=== PATIENT | female | born 1985 | race Two or more races ===

== ENCOUNTER 2024-07-12 13:15 | Day surgery (SDC) | payer MEDICAID, SELFPAY ==
--- NOTE | 2024-07-07 07:00 | EKG_ITS ---
[facility] Test Date: 2024-07-07 Pat Name: CATARINA GUERRERO Department: Room: - Gender: Female Product Introduction Manager: JUDI : 1985 Requested By: Zhang Mccrary Order Number: [id number] Reading MD: Zhang Mccrary Measurements Intervals Rosine Rate: 73 P: 51 IL: 113 QRS: 43 QRSD: 82 T: 37 QT: 423 QTc: 468 Interpretive Statements SINUS RHYTHM WITH SHORT [place] INTERVAL POSSIBLE RIGHT VENTRICULAR CONDUCTION DELAY No previous ECG available for comparison /[id number]/S0/[id number].pdf
[2024-07-07 09:42] VITALS: BMI 25.2
[2024-07-07 10:08] LABS: Collection Type, Urine Clean Catch
[2024-07-07 10:38] LABS: Basophils % (Auto) 0 % (0-2.5); Eosinophils # (Auto) 0.1 Thou/mm3 (0.0-0.5); Eosinophils % (Auto) 1 % (0-10); Hematocrit 38.3 % (36.0-46.0); Hemoglobin 12.8 g/dL (12.0-16.0); Immature Granulocytes % (Auto) 0 % (0-0); Immature Granulocytes Auto 0.01 Thou/mm3 (0.00-0.00); Lymphocytes # (Auto) 1.3 Thou/mm3 (1.0-4.8); Lymphocytes % (Auto) 21 % (10-50); Mean Corpuscular HGB Conc 33.4 g/dl (31.0-37.0); Mean Corpuscular Hemoglobin 29.6 pg (25.0-35.0); Mean Corpuscular Volume 89 fL (80-100); Monocytes # (Auto) 0.3 Thou/mm3 (0.0-0.8); Monocytes % (Auto) 5 % (0-12); Neutrophils # (Auto) 4.6 Thou/mm3 (1.8-7.7); Neutrophils % (Auto) 73 % (37-80); Nucleated Red Blood Cell % 0 /100 WBC (0); Platelet Count 222 Thou/mm3 (140-440); RDW Standard Deviation 41.9 fL (36.4-46.3); Red Blood Count 4.32 Miln/mm3 (4.00-5.20); White Blood Count 6.4 Thou/mm3 (3.6-11.0)
[2024-07-07 10:43] LABS: Bacteria,Urine Rare; Bilirubin,Urine Negative (Negative); Blood,Urine Negative (Negative); Clarity,Urine Clear (Clear/Hazy); Color,Urine Yellow (Lt Yel-Yel); Glucose, Urine Negative (Negative); Ketones,Urine Negative (Negative); Leukocyte Esterase,Urine Negative (Negative); Nitrite,Urine Negative (Negative); PH,Urine 5.5 (5.0-7.0); Protein,Urine Negative (Neg - Trace); RBC,Urine 1 /hpf (0-3); Specific Gravity,Urine 1.025 (1.001-1.035); Squamous Epithelial Cell,Urine 2 /hpf (0-5); Urobilinogen,Urine Negative mg/dL (0.0-1.0); WBC,Urine 1 /hpf (0-5)
[2024-07-07 10:49] LABS: Partial Thromboplastin Time 28.5 Seconds (22.0-36.0); Prothrombin Time 11.3 Seconds (9.0-12.2)
[2024-07-07 11:01] LABS: Alanine Aminotransferase < 7 U/L (10-49); Albumin, Serum 4.7 gm/dL (3.5-5.0); Albumin/Globulin Ratio 1.7 (1.2-2.2); Alkaline Phosphatase 62 U/L (46-116); Anion Gap 5 (7-16); Aspartate Amino Transferase 16 U/L (0-34); BUN/Creatinine Ratio 10 Ratio (12-20); Bilirubin,Total 0.8 mg/dL (0.3-1.2); Blood Urea Nitrogen 8 mg/dL (9-23); Calcium 9.4 mg/dL (8.3-10.6); Calcium (Corrected) 9.4 mg/dL (8.5-10.1); Chloride 106 mMol/L (98-107); Creatinine (Component) 0.8 mg/dL (0.6-1.3); Estimated Creatinine Clearance 86.6 mL/min (>60); Globulin 2.8 gm/dL (2.3-3.5); Glucose 100 mg/dL (74-106); Osmolality,Calculated 275 (275-295); Potassium 3.5 mMol/L (3.4-5.1); Sodium 139 mMol/L (136-145); Total Protein 7.5 gm/dL (5.7-8.2); eGFR > 60 See Note
--- NOTE | 2024-07-10 11:25 | PD.SURHP ---
HPI Date of Admission July 12, 2024 Chief Complaint Chief Complaint: Painful ventral incisional umbilical hernia. HPI This is a 39-year-old female she had laparoscopic tubal ligation through the umbilical incision. Later on she developed hernia in this incision and has been growing steadily over a period of past several years and it has become very irreducible and is giving her significant pain. She is brought to the operating room for exploration and repair of the incisional umbilical hernia with possible implantation of a patch. Risk benefits alternatives were discussed with the patient and informed consent is obtained. Past Medical History Past Medical History NEUROLOGIC: Negative Neurological Disorders or Seizures CARDIAC: Negative Cardiac Disorders or Congestive Heart Failure RESPIRATORY: Negative Respiratory Disorders or Chronic Obstructive Pulmonary Disease (COPD) GASTROINTESTINAL: Negative Gastrointestinal Disorders GENITOURINARY: Negative Genitourinary Disorders or Renal Disease REPRODUCTIVE: Positive Previous Pregnancies (4) MUSCULOSKELETAL: Negative Musculoskeletal Disorders ENT: Negative History of ENT Problems ENDOCRINE: Negative Endocrine Disorders, Diabetes Mellitus Type 1 or Diabetes Mellitus Type 2 HEMATOLOGIC: Negative Blood Disorders OTHER HISTORY: Positive Hospitalization (surgery) and Chicken Pox; Negative Autoimmune Disease, Shingles, Blood Transfusions, Blood Transfusion Reaction, Anesthesia Reactions or Cancer Family History FAMILY HISTORY: Positive Family Cancer and Family Surgery; Negative Family Psychiatric Problems, Family Respiratory Disorders, Family Cardiac Disorders, Family Gastrointestinal Problems, Family Genitourinary Problems, Family Endocrine Disorders, Family Reproductive Disorders, Family Musculoskeletal Disorders or Family Anesthesia Reaction Surgical History SURGICAL: Positive Hysterectomy and Tubal Ligation Social History SMOKING STATUS: Never smoker Travel History EBOLA RISK: No Meds Home Medications and Allergies Home Medications ?Medication ?Instructions ?Recorded ?Confirmed ?Type No Known Home Medications 07/24/23 07/07/24 History Allergies Allergy/AdvReac Type Severity Reaction Status Date / Time No Known Allergies Allergy Verified 07/07/24 09:42 Exam Constitutional Constitutional: no acute distress Routine HEENT Exam Head: Present normocephalic Eye: Present EOMI and PERRL ENT: Present mucous membranes moist Routine Neck Exam Neck: Present supple and trachea midline Routine Chest/Breast/Axilla Exam Chest wall: Absent tenderness or mass Routine Respiratory Exam Respiratory: Present chest non-tender, lungs clear, normal breath sounds and no resp distress; Absent respiratory distress Routine Cardiovascular Exam Cardiovascular: Present RRR Routine Abdominal Exam Abdominal: Present soft, normoactive bowel sounds, hernia (There is an umbilical incisional hernia that is not reducible. There is a scar in the umbilicus.) and surgical scars (Umbilical area.); Absent distended, rebound or guarding Routine Extremities Exam Extremities: Present full ROM Routine Skin Exam Skin: Present intact, dry and warm Routine Neurological Exam Neurological: Present alert, oriented X3 and CN II-XII intact Routine Psychiatric Exam Psychiatric: Present normal affect and normal thought process Results Results: Laboratory Laboratory results: results reviewed Assessment & Plan Problem List (1) Incisional ventral hernia w obstruction: Status: Acute (2) Umbilical hernia: Status: Acute Plan Repair of partially a reducible umbilical and incisional hernia with possible implantation of a patch. Informed consent is obtained. Quality Measures Quality Measures none
[2024-07-12] VITALS (8 sets, daily range): BP systolic 103–119; BP diastolic 56–73; PULSE 76–110; RESP 12–20; TEMP 36.2–36.6; O2SAT 97–100; BMI 25.7
[2024-07-12] MEDS: RINGERS LACTATED 1000 ML 1,000 ML 60 ML IV (13:40)
--- NOTE | 2024-07-12 18:11 | PD.SUROPNT ---
Date of Procedure 07/12/24 Pre Op Diagnosis Ventral incisional hernia Post Op Diagnosis Same. Procedure Repair of ventral incisional hernia incarcerated on July 12, 2024 Findings This patient had laparoscopic procedure done in her pelvis and developed a hernia in the laparoscopic incision around the umbilicus. Upon exploration through the previous scar patient was noted to have an incarcerated hernia and he required extension of the hernia defect in order to reduce the hernia. The hernia measured about 4 cm. Procedure Description The patient is interviewed in the preoperative area and the procedure was discussed in detail with the patient including expectation of outcomes. Explanation of the technique and complications. An informed consent was obtained. Anesthesia consent was obtained by the anesthesiologist. The hernia sites were marked on the surface. Patient is brought back to the operating room. The patient is positioned supine on the operating table and general anesthesia is administered in a satisfactory manner. The chest abdomen and thigh genitalia regions are prepped and draped in usual manner. IV antibiotics were given and a timeout procedure was carried out. The local anesthesia quarter percent Marcaine with out epinephrine is used. The previous incision scar is used to make a transverse incision below the umbilicus. This was deepened through the skin and subcutaneous tissue. Incarcerated hernia sac is identified. Hernia sac is not reducible therefore the defect was cleared and then extended laterally on the left side. The hernia sac is opened and the contents were examined again are viable and is reduced. The hernia sac is removed as specimen. The fascia is cleared for about 2 cm around the defect. The defect is closed with 0 Ethibond [id number] stitches. The operative field is thoroughly irrigated with saline solution and hemostasis is achieved. The sponge needle lap and instrument counts were obtained they are correct x 2. The umbilicus is attached back to the fascia with interrupted 2-0 Vicryl stitches. Subcu tissue was again irrigated and was approximated with 3-0 chromic interrupted sutures and skin by 4-0 Monocryl subcuticular stitches. Steri-Strips were applied. Patient tolerated the procedure very well complications none. Patient is transferred to recovery room in a satisfactory condition. Anesthesia GETA Drains None. Implants None. Pathology / specimen Other (Hernia sac) Estimated Blood Loss 5 Condition Stable Disposition PACU Surgeon Zhang Mccrary MD Surgical Staff Operation Date: 07/12/24 16:00 Case Staff ASSOCIATE QUALITY ENGINEER: [place],Sudarshan B inspector insulation: Jesus Shelton, ADRIENNE tender coordinator [facility] surgical instrument repair specialist
--- NOTE | 2024-07-12 18:21 | SUR.PHASEI ---
pt arrived to PACU via gurney with oral airway present, breathing unlabored, dressing to abdomen clean, dry, and intact, report from Bobby RN, and Alexis GASOLINE DRAGLINE OPERATOR.
[2024-07-12] MEDS: fentaNYL CIT INJ 50 mCg/ML AMP 2ML IV (18:51)
[2024-07-12] MEDS: ACETAMINOPHEN IVPB 1,000 MG/100 ML VIAL 250 MG IV (18:52)
--- NOTE | 2024-07-12 19:38 | SUR.PHASEII ---
pt awake, alert, able to follow commands, breathing unlabored, dressing to abdomen clean, dry, and intact, discharge instructions given using telephon fretted instrument inspector with spouse present, all questions answered, pt able to ambulate with steady gait to wheelchair, pt discharged via wheelchair with all belongings and copies of discharge paperwork.
== END 2024-07-12 19:38 | disposition home or self-care (01) ==
PROVIDERS: PCP Physician Assistant; Referring Provider Specialist; Visit Provider Specialist
PROC: (CPT 49595; principal; 2024-07-12 16:00)
DX: K43.0 Incisional hernia with obstruction, without gangrene (principal); K42.0 Umbilical hernia with obstruction, without gangrene; Z01.810 Encounter for preprocedural cardiovascular examination
CPT/HCPCS: 49595; 36415; 80053; 81001; 85025; 85610; 85730; 93005; A4649; J0131; J0694; J1100; J1885; J2250; J2405; J2704; J3010; J3490; J7120